=== PATIENT | female | born 1960 | race Caucasian/White ===

== ENCOUNTER 2017-01-02 18:48 | Emergency (ER) | payer MEDICARE, OTHER ==
[~2017-01-02] VITALS: Ht 157.5 cm; Wt 72.6 kg
[~2017-01-02 18:48] MED LIST: CYCL5TAB PO; DOCU-25 PO; METH10TA2 PO; PREG25CA PO; SIMV40TA5 PO; TOPI200T PO
[2017-01-02 19:24] LABS: BASOPHILS % (AUTO) 0.5 % (0.0-2.0); EOSINOPHILS % (AUTO) 0.5 % (0.0-6.0); HEMATOCRIT 38 % (33-45); HEMOGLOBIN 12.8 g/dL (11.5-14.8); LYMPHOCYTES # (AUTO) 1.4 /CMM (0.8-4.8); LYMPHOCYTES % (AUTO) 25.5 % (20.0-44.0); MEAN CORPUSCULAR HEMOGLOBIN 28 PG (26.0-33.0); MEAN CORPUSCULAR HGB CONC 34 g/dl (31.0-36.0); MEAN CORPUSCULAR VOLUME 85 fL (82-100); MONOCYTES # (AUTO) 0.5 /CMM (0.1-1.30); MONOCYTES % (AUTO) 9.3 % (2.0-12.0); NEUTROPHILS # (AUTO) 3.7 /CMM (1.8-8.9); NEUTROPHILS % (AUTO) 64.2 % (43.0-81.0); PLATELET COUNT (AUTO) 226 /CMM (150-450); RDW COEFFICIENT OF VARIATION 13.2 (11.5-15.0); RED BLOOD CELL COUNT(AUTO) 4.51 MIL/uL (4.0-5.2); WHITE BLOOD COUNT (AUTO) 5.6 K/uL (4.3-11.0)
[2017-01-02 19:26] VITALS: BP 131/94
[2017-01-02 19:34] LABS: CALCIUM, SERUM 9.2 mg/dL (8.5-10.1); CARBON DIOXIDE 33 mmol/L (21-32); CHLORIDE 103 mmol/L (98-107); CREATININE 0.9 mg/dL (0.6-1.3); GFR 65 mL/min (>60); GLUCOSE 88 mg/dL (74-106); POTASSIUM 4.3 mmol/L (3.5-5.1); SODIUM SERUM 139 mmol/L (136-145); UREA NITROGEN, BLOOD 21 mg/dL (7-18)
--- NOTE | 2017-01-02 19:38 | NUR ---
Assumed care of pt. pt AOxname w/ resp even & unlabored, denies any pain, on continuous monitoring, bed low to ground w/ siderails up, call light within reach.
[2017-01-02 19:39] LABS: ALANINE AMINOTRANSFERASE 18 U/L (12-78); ALKALINE PHOSPHATASE 129 U/L (46-116); ASPARTATE AMINOTRANSFERASE 29 U/L (15-37); BILIRUBIN,DIRECT 0.1 mg/dL (0.0-0.2); BILIRUBIN,TOTAL 0.6 mg/dL (0.2-1.0); SALICYLATE 3.7 mg/dL (2.8-20.0); TOTAL PROTEIN, SERUM 7.5 g/dL (6.4-8.2)
[2017-01-02 19:41] LABS: ACETAMINOPHEN 0 ug/ml (10-30); ALCOHOL, BLOOD < 3 mg/dL (0-0)
--- NOTE | 2017-01-02 19:56 | NUR ---
Urine obtained & sent to lab.
[2017-01-02 20:27] LABS: APPEARANCE,URINE Clear (CLEAR); BILIRUBIN,URINE Negative (NEGATIVE); BLOOD, URINE Negative Ery/uL (NEGATIVE); COLOR,URINE Yellow (YELLOW); KETONES,URINE Negative (NEGATIVE); LEUKOCYTE ESTERASE ,URINE Trace (NEGATIVE); NITRITE, URINE Negative (NEGATIVE); PH,URINE 6.5 (5.0-8.0); PROTEIN,URINE Negative (NEGATIVE); UGLUCOSE Negative (NEGATIVE); UROBILINOGEN,URINE 0.2 EU/dL (0.2)
[2017-01-02 20:35] LABS: CANNABINOID, URINE POSITIVE (NEGATIVE); PHENCYCLIDINE SCREEN,URINE NEGATIVE (NEGATIVE)
[2017-01-02 20:41] LABS: ADD URINE CULTURE NO; BACTERIA,URINE Rare /HPF (None Seen); RBC,URINE 0-2 /HPF (0-2); SQUAMOUS EPITHELIAL CELL,UR Few /HPF (None Seen)
--- NOTE | 2017-01-02 22:14 | NUR ---
CALLED [facility] FOR PSYCH EVAL
--- NOTE | 2017-01-02 22:36 | NUR ---
pt ambulatory w/ steady gait to restroom, resp even & unlabored, nad noted.
--- NOTE | 2017-01-02 23:10 | NUR ---
pt ambulatory w/ steady gait to nurse's station. Updated pt on status. Awaiting psych eval.
--- NOTE | 2017-01-02 23:16 | NUR ---
pt AOx3, denies any SI/HI, confirms she has arrangements to stay at a friend's house, able to make needs known, able to make own arrangements for food and housing, properly clothed. pt advised to wait for psychiatric eval.
--- NOTE | 2017-01-02 23:42 | NUR ---
Patient not in rm, searched ER, lobby, and waiting RM. pt eloped. Dr. Al notified.
== END 2017-01-02 23:48 | disposition left against medical advice (07) ==
LOC: ER 18:56
DX: F15.10 Other stimulant abuse, uncomplicated (principal); F17.200 Nicotine dependence, unspecified, uncomplicated; C41.9 Malignant neoplasm of bone and articular cartilage, unspecified; Z98.890 Other specified postprocedural states
CPT/HCPCS: 36415; 80048; 80076; 80305; 80329; 81001; 85025; 93005; 99285; A4606; G0480 ×2; 81000-TC; G6039-TC; Z7610

== ENCOUNTER 2017-11-07 15:25 | Emergency (ER) | payer MEDICARE, OTHER ==
[~2017-11-07] VITALS: Ht 154.9 cm; Wt 86.2 kg
[~2017-11-07 15:25] MED LIST changes: +DOCU-141 PO; -DOCU-25 PO
--- NOTE | 2017-11-07 15:35 | NUR ---
PATIENT COMPLAINT OF GENERALIZED BODY PAIN, Hx OF BONE CANCER. PATIENT IN NO DISTRESS,, SKIN IS WARM TO TOUCH AND NON DIAPHORETIC,. PATIENT IS AFEBRILE. VSS
[2017-11-07] MEDS ORDERED: oxyCODONE HCL SR 10MG TAB.SR.12H PO SCH (16:30)
[2017-11-07] MEDS ORDERED: ONDANSETRON 4 MG TAB.RAPDIS PO ONE (16:30)
[2017-11-07 16:39] LABS: BASOPHILS % (AUTO) 0.3 % (0.0-2.0); EOSINOPHILS # (AUTO) 0.1 /CMM (0.0-0.7); EOSINOPHILS % (AUTO) 1.2 % (0.0-6.0); HEMATOCRIT 49 % (33-45); HEMOGLOBIN 17.1 g/dL (11.5-14.8); LYMPHOCYTES # (AUTO) 1.8 /CMM (0.8-4.8); LYMPHOCYTES % (AUTO) 17.6 % (20.0-44.0); MEAN CORPUSCULAR HEMOGLOBIN 29 PG (26.0-33.0); MEAN CORPUSCULAR HGB CONC 35 g/dl (31.0-36.0); MEAN CORPUSCULAR VOLUME 83 fL (82-100); MONOCYTES # (AUTO) 0.5 /CMM (0.1-1.30); MONOCYTES % (AUTO) 4.8 % (2.0-12.0); NEUTROPHILS # (AUTO) 7.6 /CMM (1.8-8.9); NEUTROPHILS % (AUTO) 76.1 % (43.0-81.0); PLATELET COUNT (AUTO) 318 /CMM (150-450); RDW COEFFICIENT OF VARIATION 12.9 (11.5-15.0); RED BLOOD CELL COUNT(AUTO) 5.92 MIL/uL (4.0-5.2)
[2017-11-07 16:49] LABS: CALCIUM, SERUM 10.3 mg/dL (8.5-10.1); CARBON DIOXIDE 22 mmol/L (21-32); CHLORIDE 100 mmol/L (98-107); CREATININE 0.7 mg/dL (0.6-1.3); GLUCOSE 98 mg/dL (74-106); POTASSIUM 3.2 mmol/L (3.5-5.1); SODIUM SERUM 139 mmol/L (136-145); UREA NITROGEN, BLOOD 14 mg/dL (7-18)
--- NOTE | 2017-11-07 16:50 | NUR ---
CALLED PHARMACY [facility]
[2017-11-07 16:56] LABS: ACETAMINOPHEN < 2 ug/ml (10-30); ALANINE AMINOTRANSFERASE 63 U/L (12-78); ALBUMIN 4.1 g/dL (3.4-5.0); ALCOHOL, BLOOD < 3 mg/dL (0-0); ALKALINE PHOSPHATASE 110 U/L (46-116); ASPARTATE AMINOTRANSFERASE 48 U/L (15-37); BILIRUBIN,DIRECT 0.2 mg/dL (0.0-0.2); BILIRUBIN,TOTAL 0.6 mg/dL (0.2-1.0); SALICYLATE 3.6 mg/dL (2.8-20.0); TOTAL PROTEIN, SERUM 9.3 g/dL (6.4-8.2)
[2017-11-07] MEDS ORDERED: ONDANSETRON 4 MG TAB.RAPDIS ONE (17:00)
--- NOTE | 2017-11-07 18:53 | NUR ---
PATIENT CAN BE DISCHARGED TO [facility] [id number] [facility] [id number] CALL [phone] ONCE THE PATIENT LEFT
--- NOTE | 2017-11-07 19:21 | NUR ---
CALLED [facility], ETA 1 HR.
--- NOTE | 2017-11-07 19:43 | NUR ---
received report from johnnie quinteros for matty.
--- NOTE | 2017-11-07 21:06 | NUR ---
Patient discharged to home in stable condition. Written and verbal after care instructions given. Patient verbalizes understanding of instruction. Bo edward
[2017-11-07 21:07] VITALS: BP 142/93
== END 2017-11-07 21:08 | disposition home or self-care (01) ==
LOC: ER 15:28
DX: F17.200 Nicotine dependence, unspecified, uncomplicated (principal); G89.4 Chronic pain syndrome; F15.10 Other stimulant abuse, uncomplicated; F11.20 Opioid dependence, uncomplicated; M54.9 Dorsalgia, unspecified; M25.551 Pain in right hip; Z85.830 Personal history of malignant neoplasm of bone
CPT/HCPCS: 36415; 80048-TC; 80076-TC; 85025-TC; G0480; Q0162